=== PATIENT | female | born 1975 | race Caucasian/White ===

== ENCOUNTER 2025-10-09 13:54 | Outpatient (CLI) | payer OTHER, SELFPAY ==
--- NOTE | ~2025-10-09 | US_ITS ---
EXAMINATION: US thyroid DATE: 10/09/2025 14:20 INDICATION: Dystonia TECHNIQUE: Multiple ultrasound images of the thyroid were obtained. COMPARISON: None. FINDINGS: The right thyroid lobe measures 3.3 x 1.4 x 1.4 cm. The left thyroid lobe measures 3.0 x 1.2 x 1.1 cm. There is normal echotexture and echogenicity throughout the thyroid gland. No discrete nodules identified. Normal vascular flow is present. Isthmus: 2.2 mm IMPRESSION: Normal-appearing thyroid gland. No goiter or suspicious nodule/mass. Reviewed, dictated and finalized at location A. [facility] IMPRESSION: Normal-appearing thyroid gland. No goiter or suspicious nodule/mass .
--- OUTSIDE RECORDS SUMMARY | 2025-10-09 17:14 | XMS_ITS | Clinical Summary ---
Author Organization [address] Address [address] [place] [id number] Care Team Providers Care Manager Discovery Name Role Phone Manisha Ariasn Brent Primary Care Provider [phone] Allergies Active Allergy Reactions Criticality Noted Date Comments Amlodipine Itching,Rash Medium 02/17/2024 Codeine Rash Medium Guaifenesin Rash Medium Medications cetirizine (ZyrTEC) 10 mg capsule Zyrtec Active naproxen (NAPROSYN) 500 mg tablet 02/12/2024 Active hydroCHLOROthiaz micki (HYDRODIURIL) 25 mg tablet Take 1 tablet (25 mg total) by mouth daily Active irbesartan (AVAPRO) 300 mg tablet Take 1 tablet (300 mg total) by mouth daily 08/28/2025 Active fexofenadine (ADRI) 180 mg tablet Take 1 tablet (180 mg total) by mouth daily Active Active Problems Problem Noted Date Diagnosed Date Tenosynovitis, de Quervain 09/08/2023 Adnexal tenderness 06/02/2020 Bacterial vaginosis 06/02/2020 Cough 03/19/2017 Overview (04/14/2017): Cough Viral upper respiratory tract infection 11/16/20 15 Overview (03/02/2017): Upper respiratory infection, viral Encounters Date Type Department Care Team Description 09/08/2025 11:00 AM CDT Office Visit [facility] Medicine Obstetrics and Gynecology [address] [place] [address] Health 7th Floor [address] [place] [address] Isabel Tristan, LAKSHMI Menorrhagia with irregular cycle (Primary Dx); Primary hypertension 08/21/2025 8:47 PM CDT - 08/21/2025 9:58 PM CDT Emergency [facility] Emergency Department [address] [place] [address] Secondary hypertension (Primary Dx) Discharge Disposition: Discharge to home or self care from Last 3 Months Surgical History Surgery Date Site/Laterality Comments CERVICAL BIOPSY W/ LOOP ELECTRODE EXCISION TUBAL LIGATION Medical History Medical History Date Comments History of tubal ligation Histor y of tubal ligation TIA (transient ischemic attack) Ovarian cyst Hypertension Family History Medical History Relation Name Comments Breast cancer Cousin Hypertension Father Hypertension Mother Hypertension Other Family history of Hypertension; Relation Name Status Comments Cousin Father Mother Alive Other Social History Tobacco Use Types Packs/Day Years Used Date Smoking Tobacco: Former Smokeless Tobacco: Never Tobacco Cessation:Counseling Given: Not Answered AUDIT-C Answer Date Recorded Q1: How often do you have a drink containing alc ohol? Monthly or less 03/14/2023 Q2: How many drinks containi ng alcohol do you have on a typical day when you are drinking? 1 or 2 03/14/2023 Q3: How often do you have si x or more drinks on one occasion? Never 03/14/2023 Personal Safety Answer Date Recorded Have you ever been in or are you currently in a harmful physical or emotional relationship or is someone making you feel afraid or unsafe? Denies 08/21/2025 Comments No Sex and Gender Information Value Date Recorded Sex Assigned at Not on file Legal Sex Female 3:46 AM EDUCATIONAL DIAGNOSTICIAN Gender Identity Female 11/27/2023 7:41 AM EDUCATIONAL DIAGNOSTICIAN Sexual Orientation Straight 11/27/2023 7: 41 AM EDUCATIONAL DIAGNOSTICIAN Obstetrics History Para Term AB IAB SAB Ectopic Multiple Livin g Live Births 4 4 4 Date Outcome GA Total Labor Labor/2nd/3rd Weight Sex Type Anes PTL Josy A1 A5 Name Clin 1996 Term M Vag-Spo nt 1997 Term F Vag-Spo nt 2001 Term F Vag-Spo nt 2003 Term M Vag-Spo nt Last Filed Vital Signs Vital Sign Reading Time Taken Comments Blood Pressure 157/103 09/08/2025 11:04 AM CDT Pulse 62 08/21/2025 9:30 PM CDT Temperature 36.8 C (98.2 F) 08/21/2025 8:34 PM CDT Respiratory Rate 12 08/21/2025 8:34 PM CDT Oxygen Saturation 97% 08/21/2025 9:30 PM CDT Inhaled Oxygen Concentration - - Weight 78.2 kg (172 lb 6.4 oz) 09/08/2025 11:04 AM CDT Height 154.9 cm (5' 1) 09/08/2025 11:04 AM CDT Body Mass Index 32.57 09/08/2025 11:04 AM CDT Plan of Treatment Health Maintenance Due Date Last Done Comments Colon Cancer Screening-Colonoscopy 1975 Depression Screening 1975 Cervical Cancer Screening 10/19/2022 10/19/2021 Regular Well Visit/Exam 18-64 03/14/2024, 10/19/2021 Influenza Vaccine (#1) 2025 Breast Cancer Screening-Mammogram 05/31/2026 05/31/2025, 01/13/2024 DTaP/Tdap/Td Vaccine (2 - Td or Tdap) 06/20/2029 06/20/2019 Hepatitis B Screening Completed 10/21/2015 , 02/03/2015 Hepatitis C Screening Completed 10/19/2021 Pneumococcal vaccine <65 Aged Out No longer eligible based on patient's age to complete this topic Procedures Procedure Name Priority Date/Time Associated Diagnosis Comments CT HEAD WO CONTRAST ED 08/21/2025 8 :57 PM CDT EGFR STAT 08/21/2025 5:07 PM CDT DIFFERENTIAL AUTO STAT 08/21/2025 5:0 7 PM CDT COMPREHENSIVE METABOLIC PANEL STAT 08/21/2025 5:07 PM CDT CBC WITH AUTO DIFFERENTIAL STAT 08/21/2025 5:07 PM CDT SCREENING MAMMOGRAM BILATERAL W BERTRAND Schedule Routine, Read Routine (OP Routine) 05/31/2025 2:22 PM CDT Encounter for screening mammogram for malignant neoplasm of breast PAP AND HIGH RISK HPV, REFLEX TO GENOTYPING Routine 10/19/2021 4:46 PM EDUCATIONAL DIAGNOSTICIAN Well woman exam HEPATITIS C ANTIBODY Routine 10/19/2021 2:58 PM EDUCATIONAL DIAGNOSTICIAN Screening for STD (sexually transmitted disease) from Last 3 Months or Most Recently Relevant to Health Maintenance Results * CT Head WO Contrast (08/21/2025 8:57 PM CDT) Anatomical Region Laterality Modality Head and Neck N/A Computed Tomogra phy 08/21/2025 9:33 PM CDT Narrative 08/21/2025 9:38 PM CDT EXAM DESCRIPTION: CT HEAD WO CONTRAST REASON FOR STUDY: severe headache complaints of hypertension and headache x3 days. Pt describes it as a pressure feeling to right side. Hx of TIA, HTN TECHNIQUE: Axial images acquired through the brain without intravenous contrast. Images stored on PACS. Automated exposure control was used as a dose optimization technique for this examination. COMPARISON: None FINDINGS: BRAIN: No hemorrhage, edema or mass effect. No recent infarct. Normal white matter. EXTRA-AXIAL SPACES: No fluid collections. No masses. CALVARIUM: No fracture. SINUSES/MASTOIDS: No fluid or mucosal thickening. ORBITS: No significant abnormality. OTHER: No other significant abnormality. IMPRESSION: No acute intracranial findings. THIS IS AN ELECTRONICALLY VERIFIED FINAL REPORT 08/21/2025 9:38 PM - Electronically signed by Zak Schofield M.D. KT: JOSE LUIS Report ID: [id number] Reading Location: [id number] Procedure Note Zak Schofield MD - 08/21/2025 EXAM DESCRIPTION: CT HEAD WO CONTRAST REASON FOR STUDY: severe headache complaints of hypertension and headache x3 days. Pt describes it as apressure feeling to right side. Hx of TIA, HTN TECHNIQUE: Axial images acquired through the brain without intravenous contrast. Images stored on PACS. Automated exposure control was used asa dose optimization technique for this examination. COMPARISON: None FINDINGS: BRAIN: No hemorrhage, edema or mass effect. No recent infarct. Normal white matter. EXTRA-AXIAL SPACES: No fluid collections. No masses. CALVARIUM: No fracture. SINUSES/MASTOIDS: No fluid or mucosal thickening. ORBITS: No significant abnormality. OTHER: No other significant abnormality. IMPRESSION: No acute intracranial findings. THIS IS AN ELECTRONICALLY VERIFIED FINAL REPORT 08/21/2025 9:38 PM - Electronically signed by Zak Schofield M.D. KT: KT Report ID: [id number] Reading Location: [place] [address] us Ramandeep Griffith NP IMG CT PROCEDURES Final Resul t * eGFR (08/21/2025 5:07 PM CDT) eGFR 73 >=60 mL/min/1. 73 m2 Comment: Interpretive Data Reference Interval Normal >/= 90 mL/min/1.73m2 Mildly decreased* 60 - 89 mL/min/1.73m2 Mildly to moderately decreased 45 - 59 mL/min/1.73m2 Moderately to severely decreased 30 - 44 mL/min/1.73m2 Severely decreased 15 - 29 mL/min/1.73m2 Kidney Failure < 15 mL/min/1.73m2 *Relative to young adult level Estimated glomerular filtration rate is determined by the 2020 CKD-EPI equation recommended by the National Kidney Foundation (A Unifying Approach to GFR Estimation: Recommendations of the NKF-ASK Task Force on Reassessing the Inclusion of Race in Diagnosing Kidney Disease, JASN 2020). The CKD-EPI equation should not be used for patients with unstable renal function and has not been validated in children and those over 70. Current interpretive data was last reviewed 2021. Blood 08/21/2025 5:07 PM CDT 08/21/2025 5:17 PM CDT Jose Luis Quezada MD LAB BLOOD ORDERABLES Final Res ult [facility] [place] 1 [facility] Department [place] [address] * Differential, auto (08/21/2025 5:07 PM CDT) Neutrophil abs 3.50 1.50 - 6.50 K/cumm Imm gran abs 0.01 0.00 - 0.10 K/cumm [facility] ([place]) Lymphocyte abs 2.12 0.80 - 3.30 K/cumm [facility] ([place]) Monocyte abs 0.53 0.20 - 0.80 K/cumm [facility] ([place]) Eosinophil abs 0.26 0.00 - 0.50 K/cumm [facility] ([place]) Basophil abs 0.03 0.00 - 0.10 K/cumm [facility] ([place]) Neutrophil pct 54.2 % [facility] ([place]) Comment: Interpretive Data Percent cell count reference ranges are not reported, since discordance with absolute values may lead to misinterpretation of CBC data. Current Interpretive Data was last revised on 2018. Imm gran pct 0.2 % [facility] ([place]) Comment: Interpretive Data Percent cell count reference ranges are not reported, since discordance with absolute values may lead to misinterpretation of CBC data. Current Interpretive Data was last revised on 2018. Lymphocyte pct 32.9 % [facility] ([place]) Comment: Interpretive Data Percent cell count reference ranges are not reported, since discordance with absolute values may lead to misinterpretation of CBC data. Current Interpretive Data was last revised on 2018. Monocyte pct 8.2 % [facility]) Comment: Interpretive Data Percent cell count reference ranges are not reported, since discordance with absolute values may lead to misinterpretation of CBC data. Current Interpretive Data was last revised on 2018. Eosinophil pct 4.0 % [facility] Comment: Interpretive Data Percent cell count reference ranges are not reported, since discordance with absolute values may lead to misinterpretation of CBC data. Current Interpretive Data was last revised on 2018. Basophil pct 0.5 % [facility] Comment: Interpretive Data Percent cell count reference ranges are not reported, since discordance with absolute values may lead to misinterpretation of CBC data. Current Interpretive Data was last revised on 2018. Blood 08/21/2025 5:07 PM CDT 08/21/2025 5:17 PM CDT us Jose Luis Quezada MD LAB BLOOD ORDERABLES Final Res ult [facility] ([place]) 1 [facility] [employer] [place] [address] * CBC with auto differential (08/21/2025 5:07 PM CDT) WBC 6.45 3.80 - 9.90 K/cumm Hgb 12.6 11.9 - 15.5 g/dL [facility]) Hct 36.9 35.6 - 45.5 % [facility]) Plt 315 150 - 400 K/cumm [facility]) MPV 10.0 9.1 - 12.3 fL [facility]) RBC 4.09 3.90 - 5.20 M/cumm [facility] ([place]) MCV 90.2 81.3 - 96.4 fL [facility]) MCH 30.8 27.1 - 33.3 pg [facility]) MCHC 34.1 32.3 - 35.7 g/dL [facility]) RDW CV 13.4 11.1 - 14.9 % [facility]) RDW SD 44.3 35.7 - 48.1 fL [facility]) NRBC abs 0.00 0.00 - 0.01 K/cumm [facility]) Blood 08/21/2025 5:07 PM CDT 08/21/2025 5:17 PM CDT us Jose Luis Quezada MD LAB BLOOD ORDERABLES Final Res ult [facility] ([place] 1 [facility] [employer] [place] [address] * Comprehensive metabolic panel (08/21/2025 5:07 PM CDT) Sodium 138 135 - 145 mmol/L [facility]) Potassium, pl 3.8 3.3 - 4.9 mmol/L [facility]) Chloride 102 97 - 110 mmol/L [facility]) CO2 25 22 - 32 mmol/L [facility]) Anion gap 11 2 - 15 mmol/L [facility]) BUN 14 6 - 25 mg/dL [facility]) Creatinine 0.97 0.60 - 1.10 mg/dL [facility]) Glucose 86 70 - 199 mg/dL [facility]) Comment: Interpretive Data Fasting glucose >/= 126 mg/dl is diagnostic for diabetes. Fasting is defined as no caloric intake for at least 8 hours. Fasting glucose between 100 mg/dl to 125 mg/dl is diagnostic of prediabetes. In a patient with classic symptoms of hyperglycemia or hyperglycemic crisis, a random glucose >/= 200 mg/dl is diagnostic for diabetes. In the absence of unequivocal hyperglycemia, results should be confirmed by repeat testing. The classification and Diagnosis of Diabetes Diabetes Care 2021; 46: S19-S40. Current interpretive data was last revised 2022. Calcium 9.8 8.5 - 10.3 mg/dL [facility]) Bilirubin, total 0.6 0.1 - 1.2 mg/dL [facility] ([place]) Protein, pl 7.4 6.5 - 8.5 g/dL [facility]) Albumin 4.5 3.5 - 5.0 g/dL [facility]) Alk phos 66 40 - 130 Units/L [facility]) ALT 19 7 - 45 Units/L [facility]) AST 25 10 - 45 Units/L [facility]) Blood 08/21/2025 5:07 PM CDT 08/21/2025 5:17 PM CDT us Jose Luis Quezada MD LAB BLOOD ORDERABLES Final Res ult [facility] ([place] 1 [facility] Department [place] [address] * Screening Mammogram Bilateral W Bertrand (05/31/2025 2:22 PM CDT) Anatomical Region Laterality Modality Breast Bilateral Mammography Impressions 05/31/2025 3:05 PM CDT Bilateral No evidence of malignancy in either breast. OVERALL BI-RADS FINAL ASSESSMENT: 1 - Negative RECOMMENDATION: Recommend bilateral annual screening mammography. Narrative 05/31/2025 3:05 PM CDT EXAMINATION: Screening Mammogram Bilateral W Bertrand: 05/31/2025 COMPARISON: Relevent prior studies available at the time of interpretation were reviewed, including the most recent mammogram on: 01/13/2024. TECHNIQUE: Mammography was performed with 2D and digital breast tomosynthesis (DBT) images. CAD was utilized. BREAST PARENCHYMAL COMPOSITION: There are scattered areas of fibroglandular density. FINDINGS: Bilateral There is no suspicious mass, calcification, or architectural distortion in either breast. Mauricio Arias DO IMG MAMMO PROCEDURES Final Result * Pap and High Risk HPV, reflex to Genotyping (10/19/2021 4:46 PM EDUCATIONAL DIAGNOSTICIAN) Swab (Pap test) 10/19/2021 4 :46 PM EDUCATIONAL DIAGNOSTICIAN 10/20/2021 6:21 AM EDUCATIONAL DIAGNOSTICIAN Narrative PATHOLOGY [facility] - 10/25/2021 1:14 PM EDUCATIONAL DIAGNOSTICIAN EPIC results best viewed via link to PDF [facility] [place] [address] Note to Patients: This report may contain a detailed description of human tissue sent by a health care provider to the laboratory for pathologic evaluation. The content of this report is essential for diagnosis and may provide important critical findings. This information may be unfamiliar to patients to review without a medical professional present. It is advised that the patient review this report in the presence of a health care provider who can answer questions and explain the details. CYTOPATHOLOGY REPORT FINAL Patient Name: BRINDA OTOOLE Gender: F : 1975 (Age: 46) Address: [address] [place], [place] [id number] Hospital #: [id number] Service: Laboratory Location: [facility] Patient Type: [facility] Ref Lab Taken: 10/19/2021 Received: 10/20/2021 Accessioned: 10/20/2021 Reported: 10/25/2021 Physician(s): Ewelina Nunez APRN FINAL INTERPRETATION SOURCE OF SPECIMEN: Liquid based Thin Prep pap with HPV STATEMENT OF ADEQUACY: - Satisfactory for evaluation - Endocervical cells/transformation zone sample absent GENERAL CATEGORY: - Negative for squamous intraepithelial lesion or malignancy DESCRIPTION: - Shift in jett suggestive of bacterial vaginosis Comments HPV Result: NEGATIVE for high risk types of Human Papilloma Virus (HPV) RNA This probe detects the presence of HPV types: 16, 18, 31, 33, 35, 39, 45, 51, 52, 56, 58, 59, 66 and 68. This HPV test was performed at [facility] in [place], [place] utilizing the Gen-Probe Aptima assay. sarah/10/25/2021 13:14 KATHARINA Estes(ASCP) Report Electronically Reviewed and Signed Out By KATHARINA Estes(ASCP) 10/25/2021 13:14:04 Cervicovaginal Cytology (Pap Test) Disclaimer: The Pap test is a screening test used to detect cervical cancer and its precursors; it is not a diagnostic procedure. False negative and false positive results do occur. Pap test results should be interpreted in the context of pertinent clinical information and biopsy results as indicated. Gross Description A. Liquid based Thin Prep pap with HPV: Cervical/vaginal - Screening ThinPrep with GC/Chlamydia Clinical Diagnosis and History Last Menstrual Period: 10/07/2021 Menstrual History: Marlin-menopausal The patient is a 46 year old woman with LEEP 10 years ago. The [place] [address]. The Gonorrhea/[place] [address]. Report Images and scanned documents, if included only viewable in PDF version The performance characteristics of some immunohistochemical stains, in-situ hybridization and fluorescence in-situ hybridization tests and immunophenotyping by flow cytometry cited in this report (if any) were determined by the Surgical Pathology Department at [facility] as part of an ongoing quality assurance project manager program and in compliance with federally mandated regulations drawn from the Clinical Laboratory Improvement Act of 1988 (CLIA '88). Some of these tests rely on the use of analyte specific reagents and are subject to specific labeling requirements by the US Food and Drug Administration. Such diagnostic tests may only be performed in a facility that is certified by the Department of Health and Human Services as a high complexity laboratory under CLIA '88. The FDA has determined that such clearance or approval is not necessary. This test is used for clinical purposes. It should not be regarded as investigational or for research. Nevertheless, federal rules concerning the medical use of analyte specific reagents require that the following disclaimer be attached to the report: This test was developed and its performance characteristics determined by the Surgical Pathology Department of [facility]. It has not been cleared or approved by the U. S. Food and Drug Administration. Ewelina Nunez NP LAB CYTOLOGY ORDERAB LES Final Result PATHOLOGY [facility] 3rd Floor [place], [place] [phone] * Hepatitis C antibody (10/19/2021 2:58 PM EDUCATIONAL DIAGNOSTICIAN) Hep C Ab Nonreactive Nonreactive [facility] Comment:Antibodies to HCV no t detected. Does NOT exclude the possibility of recent exposure to HCV. Blood 10/19/2021 2:58 PM EDUCATIONAL DIAGNOSTICIAN 10/19/2021 5:12 PM EDUCATIONAL DIAGNOSTICIAN Ewelina Nunez NP LAB MICROBIO LOGY - GENERAL ORDERABLES Edited Result - Final [facility] One [facility] Department [place] [address] from Last 3 Months or Most Recently Relevant to Health Maintenance Insurance [place] [id number] [employer] COV[employer] HMO/POS Care Teams Manager Discovery Relationship Specialty Start Date End Date Mauricio Arias DO [address] [place] [address] PCP - General Family Medicine 04/05/25
== END 2025-10-09 13:55 | disposition home or self-care (01) ==
LOC: CHSIMG 13:55
PROVIDERS: PCP Nurse Practitioner Family; Visit Provider Nurse Practitioner Family
DX: R05.3 Chronic cough (principal); R49.0 Dysphonia
CPT/HCPCS: 76536